=== PATIENT | female | born 1985 | race Caucasian/White ===

== ENCOUNTER 2019-03-07 00:43 | Emergency (ER) | payer OTHER ==
[~2019-03-07] VITALS: Ht 165.1 cm; Wt 106.0 kg
[2019-03-07] MEDS ORDERED: MAGNESIUM/ALUMINUM HYDROXIDE/SIMETHICONE 30ML UDC PO STA ×2 (02:23→05:30)
[2019-03-07] MEDS ORDERED: ONDANSETRON HCL 4MG/2ML INJ IV STA ×2 (02:23→05:30)
[2019-03-07 03:04] LABS: HEMOGLOBIN. 11.2 g/dL (12.0-16.0); MEAN CORPUSCULAR HEMOGLOBIN 23.5 pg (28.0-32.0); MEAN CORPUSCULAR VOLUME 71.6 fL (81.0-99.0); MEAN PLATELET VOLUME 7.7 fl (7.4-10.4); PLATELET 224 x1000/uL (130-400); RED BLOOD CELL COUNT 4.76 mill/uL (4.2-5.4); RED CELL DISTRIBUTION WIDTH 16.7 % (11.6-14.6)
[2019-03-07 03:08] LABS: CHLORIDE 106 mEq/L (98-107)
[2019-03-07 03:13] LABS: CLARITY URINE CLOUDY (CLEAR); COLOR URINE DARK YELLOW (YELLOW); KETONES URINE 3+ (NEGATIVE); LEUKOCYTE ESTERASE URINE 2+ (NEGATIVE); NITRITE URINE NEGATIVE (NEGATIVE); OCCULT BLOOD URINE NEGATIVE (NEGATIVE); PROTEIN URINE 1+ (NEGATIVE); SPECIFIC GRAVITY URINE 1.028 (1.005-1.030)
[2019-03-07 04:00] LABS: PLATELET ESTIMATE NORMAL
[2019-03-07] MEDS ORDERED: KETOROLAC 15MG/ML VIAL IV ONE (05:30)
[2019-03-07] MEDS ORDERED: PIPERACILLIN/TAZ 3.375G PREMIX 50 ML IV ONE (06:30)
[2019-03-07 06:43] LABS: HEPATITIS B SURFACE ANTIGEN NEGATIVE
[2019-03-07] MEDS ORDERED: MORPHINE SULFATE 4 MG/ML CPJ (NOT FOR IM USE) IV STA (07:08)
[2019-03-07 07:38] LABS: HEPATITIS A AB IGM NEGATIVE (NEGATIVE)
[2019-03-07 11:37] VITALS: BP 99/53
== END 2019-03-07 11:50 | disposition short-term general hospital (02) ==
LOC: ER 00:43 → CANBEDREQ 09:42 → ER 11:50
DX: K80.50 Calculus of bile duct without cholangitis or cholecystitis without obstruction (principal); N30.00 Acute cystitis without hematuria; D72.825 Bandemia
CPT/HCPCS: 36415; 71045; 76705; 80053; 81003; 81025; 83690; 85025; 87040; 87077; 87086; 87186; 96365; 96375; 96376; 99285; J1885; J2270; J2405; J2543; Z7610; 86705; 86709; 86803; 87340